=== PATIENT | male | born 1960 | race Caucasian/White ===

== ENCOUNTER 2018-06-23 17:44 | Emergency (ER) | payer OTHER ==
--- NOTE | 2018-06-23 18:40 | ERPHSYRPT ---
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 PT DENIES ANY VOMITING THOUGH REPORTS INTERMITTENT NAUSEA. PT ARRIVES P/W/D RESP EASY A@OX3. Physician History: 58 y/o white male presents with right upper quadrant abd pain for 24 hours after eating spaghetti. pt has had intermittent nausea, but no vomiting or diarrhea. upon my evaluation, pts abd pain and nausea has completely resolved. pt immediately wanted to sign out ama. however, he opted to stay for lab draw results. Timing/Duration: hour(s) (24) Activities at Onset: none Abdominal Pain Onset Location: RUQ Pain Radiation: no radiation Severity of Pain-Max: moderate Severity of Pain-Current: none Modifying Factors: Improves With: nothing Associated Symptoms: nausea, No chest pain, No diarrhea, No vomiting Previous symptoms: no prior history - Review of Systems Constitutional: No Symptoms, No Fever Eyes: No Symptoms Ears, Nose, & Throat: No Symptoms Respiratory: No Symptoms Cardiac: No Symptoms Abdominal/Gastrointestinal: Abdominal Pain (right upper quad), Nausea, No Vomiting, No Diarrhea Genitourinary Symptoms: No Symptoms, No Dysuria, No Frequency, No Hematuria Musculoskeletal: No Symptoms, No Back Pain, No Neck Pain Skin: No Symptoms Neurological: No Symptoms Psychological: No Symptoms Endocrine: No Symptoms Hematologic/Lymphatic: No Symptoms Immunological/Allergic: No Symptoms All Other Systems: Reviewed and Negative - Past Medical History Pertinent Past Medical History: No Neurological History: No Pertinent History ENT History: No Pertinent History Cardiac History: No Pertinent History Respiratory History: No Pertinent History Endocrine Medical History: No Pertinent History Musculoskeletal History: No Pertinent History GI Medical History: No Pertinent History History: No Pertinent History Psycho-Social History: No Pertinent History Male Reproductive Disorders: No Pertinent History - Past Surgical History Past Surgical History: No Neuro Surgical History: No Pertinent History Cardiac: No Pertinent History Respiratory: No Pertinent History Gastrointestinal: No Pertinent History Genitourinary: No Pertinent History Musculoskeletal: No Pertinent History Male Surgical History: No Pertinent History - Social History Smoking Status: Current every day smoker Drug Use: none - Nursing Vital Signs Nursing Vital Signs: Initial Vital Signs Temperature 97.5 F 06/23/18 18:09 Pulse Rate 64 06/23/18 18:09 Respiratory Rate 16 06/23/18 18:09 Blood Pressure 132/85 06/23/18 18:09 O2 Sat by Pulse Oximetry 97 06/23/18 18:09 Pain Scale Pain Intensity 8 - Physical Exam General Appearance: no apparent distress, alert Eye Exam: PERRL/EOMI Ears, Nose, Throat Exam: normal ENT inspection, moist mucous membranes Neck Exam: normal inspection, non-tender, supple, full range of motion Respiratory Exam: normal breath sounds, lungs clear, airway intact, No chest tenderness, No respiratory distress, No accessory muscle use, No rhonchi, No wheezing, No stridor Cardiovascular Exam: regular rate/rhythm, normal heart sounds, normal peripheral pulses Gastrointestinal/Abdomen Exam: soft, normal bowel sounds, No tenderness, No guarding, No rebound Rectal Exam: not done Back Exam: normal inspection, normal range of motion, No CVA tenderness, No vertebral tenderness Extremity Exam: normal inspection, normal range of motion, pelvis stable Neurologic Exam: alert, oriented x 3, cooperative, 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 Skin Exam: normal color, warm, dry Lymphatic Exam: No adenopathy SpO2 Interpretation: normal SpO2: 97 - Course Nursing assessment & vital signs reviewed: Yes Ordered Tests: Active Orders 24 hr Category Date Time Status AMYLASE Stat Lab 06/23/18 19:40 Completed CBC W DIFF Stat Lab 06/23/18 19:40 Completed CMP Stat Lab 06/23/18 19:40 Completed LIPASE Stat Lab 06/23/18 19:40 Completed Lactic Acid Stat Lab 06/23/18 19:22 Ordered Lab/Rad Data: Laboratory Result Diagrams 06/23/18 19:40 06/23/18 19:40 Laboratory Results 06/23/18 06/23/18 Range/Units 19:40 19:40 WBC 12.2 H (4.0-10.5) K/mm3 RBC 5.65 H (4.1-5.6) M/mm3 Hgb 18.1 H (12.5-18.0) gm/dl Hct 54.9 H (42-50) % MCV 97.2 (78-100) fl MCH 32.0 (26-32) pg MCHC 33.0 (32-36) g/dl RDW 14.0 (11.5-14.0) % Plt Count 191 (150-450) K/mm3 MPV 9.8 H (6-9.5) fl Gran % 73.3 H (36.0-66.0) % Eos # (Auto) 0.28 (0-0.5) Absolute Lymphs (auto) 1.84 (1.0-4.6) Absolute Monos (auto) 1.08 (0.0-1.3) Lymphocytes % 15.1 L (24.0-44.0) % Monocytes % 8.9 (0.0-12.0) % Eosinophils % 2.3 (0.00-5.0) % Basophils % 0.4 (0.0-0.4) % Absolute Granulocytes 8.94 H (1.4-6.9) Basophils # 0.05 (0-0.4) Sodium 140 (137-145) mmol/L Potassium 3.8 (3.5-5.1) mmol/L Chloride 102 (98-107) mmol/L Carbon Dioxide 27 (22-30) mmol/L Anion Gap 15.0 (5-15) MEQ/L BUN 12 (9-20) mg/dL Creatinine 0.95 (0.66-1.25) mg/dL Estimated GFR > 60.0 ML/MIN Glucose 103 (74-106) mg/dL Calcium 9.3 (8.4-10.2) mg/dL Total Bilirubin 1.70 H (0.2-1.3) mg/dL AST 201 H (17-59) U/L ALT 96 H (0-50) U/L Alkaline Phosphatase 188 H (38-126) U/L Serum Total Protein 7.8 (6.3-8.2) g/dL Albumin 4.4 (3.5-5.0) g/dL Amylase 94 (30-110) U/L Lipase 77 (23-300) U/L - Progress Progress: improved, re-examined Counseled pt/family regarding: lab results, diagnosis, need for follow-up - Departure Time of Disposition: 20:29 Departure Disposition: Home Clinical Impression: Right upper quadrant abdominal pain, Leukocytosis, Elevated liver enzymes Condition: Stable Critical Care Time: No Referrals: DOCTOR,NO FAMILY [Primary Care Provider] - Additional Instructions: avoid fatty, greasy, and spicy foods. follow up with primary doctor for further management. Prescriptions: Ciprofloxacin [Cipro 500 MG] 500 mg PO BID #14 tablet
[2018-06-23 19:45] LABS: BASOPHIL % 0.4 % (0.0-0.4); Basophil (Absolute #) 0.05 (0-0.4); Eosinophil % 2.3 % (0.00-5.0); Eosinophil (Absolute #) 0.28 (0-0.5); Granulocyte Absolute (ANC) 8.94 (1.4-6.9); Granulocytes % 73.3 % (36.0-66.0); Hematocrit 54.9 % (42-50); Hemoglobin 18.1 gm/dl (12.5-18.0); Lymphocyte (Absolute #) 1.84 (1.0-4.6); Lymphocytes % 15.1 % (24.0-44.0); Mean Cell Volume 97.2 fl (78-100); Mean Platelet Volume 9.8 fl (6-9.5); Monocyte (Absolute #) 1.08 (0.0-1.3); Monocytes % 8.9 % (0.0-12.0); Platelet Count 191 K/mm3 (150-450); Red Blood Count 5.65 M/mm3 (4.1-5.6); White Blood Count 12.2 K/mm3 (4.0-10.5)
[2018-06-23 19:53] VITALS: O2SAT 97
[2018-06-23 20:02] LABS: ALBUMIN 4.4 g/dL (3.5-5.0); ALKALINE PHOSPHATASE 188 U/L (38-126); AMYLASE 94 U/L (30-110); BLOOD UREA NITROGEN 12 mg/dL (9-20); CHLORIDE 102 mmol/L (98-107); Calcium 9.3 mg/dL (8.4-10.2); Carbon Dioxide 27 mmol/L (22-30); Creatinine 1 0.95 mg/dL (0.66-1.25); Glucose 103 mg/dL (74-106); LIPASE 77 U/L (23-300); Potassium 3.8 mmol/L (3.5-5.1); SGOT/AST 201 U/L (17-59); SGPT/ALT 96 U/L (0-50); SODIUM 140 mmol/L (137-145); Total Protein 7.8 g/dL (6.3-8.2)
[2018-06-23 20:20] VITALS: BP 116/77; PULSE 62
[2018-06-23] MEDS ORDERED: Cipro 500 MG PO ONE (20:31)
[2018-06-23] MEDS ORDERED: Cipro 500 MG ONE (20:37)
== END 2018-06-23 20:57 | disposition home or self-care (01) ==
LOC: ED 17:44
DX: R10.11 Right upper quadrant pain (principal); R11.0 Nausea; D72.829 Elevated white blood cell count, unspecified; R74.8 Abnormal levels of other serum enzymes
CPT/HCPCS: 36415; 80053; 82150; 83605; 83690; 85025; 99283; A9270-GY

== ENCOUNTER 2018-12-21 17:35 | Emergency (ER) | payer MEDICAID, OTHER ==
--- NOTE | 2018-12-21 18:01 | ERPHSYRPT ---
- History of Present Illness Time Seen by Provider: 12/21/18 18:00 Source: patient, family Exam Limitations: no limitations Physician History: 58 y/o white male who occasionally smokes marijuana and cigarettes. he presents with cough and mild soa for 2 weeks. pt states sx worsening. pt does not see doctors. pt denies fever. Timing/Duration: week(s) (2) Cough Quality/Degree: moderate, dry cough Possible Cause: no prior episodes Modifying Factors: Improves With: coughing Associated Symptoms: fever, cough, shortness of breath, No chest pain/soreness - Review of Systems Constitutional: No Symptoms Eyes: No Symptoms Ears, Nose, & Throat: No Symptoms Respiratory: Cough, Dyspnea, No Stridor, No Wheezing Cardiac: No Symptoms Abdominal/Gastrointestinal: No Symptoms, No Abdominal Pain, No Nausea, No Vomiting, No Diarrhea Genitourinary Symptoms: No Symptoms Musculoskeletal: No Symptoms, Injury Skin: No Symptoms Neurological: No Symptoms Psychological: No Symptoms Endocrine: No Symptoms Hematologic/Lymphatic: No Symptoms Immunological/Allergic: No Symptoms All Other Systems: Reviewed and Negative - Past Medical History Pertinent Past Medical History: No Neurological History: No Pertinent History ENT History: No Pertinent History Cardiac History: No Pertinent History Respiratory History: No Pertinent History Endocrine Medical History: No Pertinent History Musculoskeletal History: No Pertinent History GI Medical History: No Pertinent History History: No Pertinent History Psycho-Social History: No Pertinent History Male Reproductive Disorders: No Pertinent History - Past Surgical History Past Surgical History: No Neuro Surgical History: No Pertinent History Cardiac: No Pertinent History Respiratory: No Pertinent History Gastrointestinal: No Pertinent History Genitourinary: No Pertinent History Musculoskeletal: No Pertinent History Male Surgical History: No Pertinent History - Social History Smoking Status: Current every day smoker Drug Use: none - Nursing Vital Signs Nursing Vital Signs: Initial Vital Signs Temperature 99.2 F 12/21/18 18:02 Pulse Rate 78 12/21/18 18:02 Respiratory Rate 18 12/21/18 18:02 Blood Pressure 119/84 12/21/18 18:02 O2 Sat by Pulse Oximetry 96 12/21/18 18:02 Pain Scale Pain Intensity 4 - Physical Exam General Appearance: no apparent distress, alert Eye Exam: PERRL/EOMI Ears, Nose, Throat Exam: normal ENT inspection, moist mucous membranes Neck Exam: normal inspection, non-tender, supple, full range of motion Respiratory Exam: airway intact, diminished breath sounds, wheezing, No chest tenderness, No respiratory distress Cardiovascular Exam: regular rate/rhythm, normal heart sounds, normal peripheral pulses Gastrointestinal/Abdomen Exam: soft, normal bowel sounds, No tenderness Rectal Exam: not done Back Exam: normal inspection, normal range of motion, No CVA tenderness, No vertebral tenderness Extremity Exam: normal inspection, normal range of motion, pelvis stable Neurologic Exam: alert, oriented x 3, cooperative, 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 Skin Exam: normal color, warm, dry Lymphatic Exam: No adenopathy SpO2 Interpretation: normal O2 Delivery: Room Air - Course Nursing assessment & vital signs reviewed: Yes Ordered Tests: Active Orders 24 hr Category Date Time Status CHEST 1 VIEW (PORTABLE) Stat Exams 12/21/18 18:12 Taken Peak Expiratory Flow Rate ONCE RT 12/21/18 18:59 Active Respiratory Therapy Assessment DAILY RT 12/21/18 18:59 Active Medication Summary Discontinued Medications Generic Name Dose Route Start Last Admin Trade Name Freq PRN Reason Stop Dose Admin Hydrocodone Bitart/Acetaminophen 10 ml 12/21/18 18:54 Hydrocodone-Acetamin 2.5-108/5 Ml Solution PO 12/21/18 18:55 STAT STA Albuterol/Ipratropium Confirm 12/21/18 18:52 Duoneb 0.5-3 Mg/3 Ml Neb Administered 12/21/18 18:53 Dose 3 ml IH .STK-MED ONE Albuterol/Ipratropium 3 ml 12/21/18 18:53 12/21/18 18:55 Duoneb 0.5-3 Mg/3 Ml Neb IH 12/21/18 18:54 3 ml STAT ONE Administration Ceftriaxone Sodium 1,000 mg 12/21/18 18:53 Rocephin 1000 Mg Inj IM 12/21/18 18:54 STAT ONE Methylprednisolone Sodium Succinate 125 mg 12/21/18 18:53 Solu-Medrol 125 Mg IM 12/21/18 18:54 STAT ONE - Progress Progress: improved Air Movement: good Progress Note: 12/21/18 19:10 cxr-bibasilar infiltrates and ? miliary lesions Blood Culture(s) Obtained: No Antibiotics given: Yes Counseled pt/family regarding: diagnosis, need for follow-up, rad results - Departure Departure Disposition: Home Clinical Impression: Pneumonia Condition: Stable Critical Care Time: No Referrals: DOCTOR,NO FAMILY [Primary Care Provider] - Additional Instructions: drink plenty fluids. stop smoking. follow up with primary doctor for further management Prescriptions: Azithromycin 250 mg [Zithromax 250 MG TABLET] 250 mg PO ZPACK #6 tablet Hydrocodone Bit/Acetaminophen [Hydrocodone-Acetaminophen Soln] 10 ml PO Q6H # 120 ml Prednisone 10 mg [Deltasone 10 mg] 10 mg PO TID #12 tablet
[2018-12-21] MEDS ORDERED: DUONEB 0.5-3 MG/3 ml Neb IH ONE ×2 (18:52→18:53)
[2018-12-21] MEDS ORDERED: Rocephin 1000 MG INJ IM ONE (18:53)
[2018-12-21] MEDS ORDERED: solu-MEDROL 125 MG IM ONE (18:53)
[2018-12-21] MEDS ORDERED: HYDROCODONE-ACETAMIN 2.5-108/5 ML SOLUTION PO STA (18:54)
[2018-12-21] MEDS ORDERED: Ventolin Hfa MDI IH ONE ×2 (19:12→19:15)
[2018-12-21] MEDS ORDERED: solu-MEDROL 125 MG ONE (19:37)
[2018-12-21] MEDS ORDERED: Rocephin 1000 MG INJ ONE (19:37)
[2018-12-21] MEDS ORDERED: HYDROCODONE-ACETAMIN 2.5-108/5 ML SOLUTION ONE (19:37)
[2018-12-21 19:56] VITALS: BP 125/82; PULSE 75; O2SAT 97
--- NOTE | 2018-12-22 08:31 | XRAY ---
Indication: Short of breath. Cough. Comparison: None Portable chest demonstrates medial left base infiltrate/atelectasis and scattered tiny calcified granulomas. Heart and mediastinal structures within normal limits. Bony thorax intact with mild degenerative changes. Impression: Left base infiltrate/atelectasis. Evidence for old granulomatous disease.
== END 2018-12-21 20:11 | disposition home or self-care (01) ==
LOC: ED 17:35
DX: J18.9 Pneumonia, unspecified organism (principal); R05 Cough; R06.02 Shortness of breath
CPT/HCPCS: 71045; 94150; 94640; 96372; 99284; J0696; J2930; A9270-GY